=== PATIENT | female | born 1975 | race African-American/Black ===

== ENCOUNTER 2016-09-24 02:57 | Inpatient (IN) | payer OTHER ==
[2016-09-24] VITALS (8 sets, daily range): BP systolic 98–134; BP diastolic 49–90
[~2016-09-24] VITALS: Ht 157.5 cm; Wt 111.1 kg
--- NOTE | ~2016-09-24 | HC ---
[facility] [place] [address] CONSULTATION Name: MAYURIDANYELLE Room #: 459-P [facility] IN .R.#: [id number] Admission: 09/24/16 Attend Phys: Jason Morgan MD Discharge: 09/26/16 Date of : 77 Report #: [id number] THIS REPORT FOR: //name// CC: [facility] physician/PCP Ignacio Mccarthy MD [facility] DATE OF SERVICE: 09/25/2016 REFERRING PROVIDER: Dr. Ignacio Jones. REASON FOR CONSULTATION: Pulmonary infiltrates and hemoptysis. HISTORY OF PRESENT ILLNESS: Our group was asked to see the patient in consultation while hospitalized at [facility], a pleasant 40-year-old woman with a pulmonary history significant for tobacco use, primary pulmonary hypertension managed at [facility] by Dr. Violeta Mccarthy, and obstructive sleep apnea for which she is on nocturnal CPAP, also has a history of spinal stenosis with chronic back pain, had recently undergone what sounds like general anesthesia and placement of spinal stimulator. The patient states she was the last case of the day was discharged in the late afternoon, went home and slept; however, woke about 9 in the evening, said she may have had some hematemesis and hemoptysis, became extremely short of breath, was brought to the Emergency Department here, was noted to have diffuse pulmonary infiltrates. CT scan of the chest to evaluate for pulmonary embolism showed no pulmonary embolism, but significant central appearing pulmonary infiltrates. She was started on piperacillin/tazobactam for possible aspiration pneumonia as well as diuretic therapy. The patient is markedly improved from high-flow nasal cannula, down to 1 liter nasal cannula at the time of my evaluation this afternoon. She has been having some dark colored blood that she continues to expectorate. Denies any illness prior to this event. No fevers, chills or sweats. No prior history of pulmonary embolism. No history of anticoagulation. Does have a history of pulmonary hypertension requiring treatment. Currently, she is resting comfortably in bed, in no distress, somewhat concerned about the ongoing ____ massive amount of hemoptysis that is happening. No chest pains, no palpitations, no further emesis. No prior history of any hemoptysis. ALLERGIES: Include METRONIDAZOLE. PAST MEDICAL HISTORY: 1. History of primary pulmonary hypertension on , lisinopril Lasix and amlodipine. 2. Hypertension. 3. History of spinal stenosis. [address] [address] CONSULTATION Name: DANYELLE MESSINA Room #: 459-P [facility]#: [id number] Admission: 09/24/16 Attend Phys: Jason Morgan MD Discharge: 09/26/16 Date of : 77 Report #: [id number] 4. History of breast reduction surgery. 5. Obesity. 6. Obstructive sleep apnea, on nocturnal CPAP. 7. Hypertension. OUTPATIENT MEDICATIONS: Include amlodipine, Celexa, Lasix, Neurontin, tadalafil, trazodone, Proctofoam, hydrocodone p.r.n., lisinopril, bupropion, meloxicam and loratadine. SOCIAL HISTORY: The patient is an active smoker about 1 pack per day and lives with her son, currently works as a hair colorist. FAMILY HISTORY: Significant for coronary artery disease, diabetes, hypertension and cerebrovascular disease. REVIEW OF SYSTEMS: CONSTITUTIONAL: Noted no fever, chills or sweats, no change in weight or appetite. ENT: No upper respiratory congestion, does note some sore throat post-procedure on Friday. CARDIOVASCULAR: Known history of pulmonary hypertension. No chest pains, palpitations or lower extremity edema. GASTROINTESTINAL: Emesis noted, possible hematemesis, no longer occurring since Friday evening two nights ago. No abdominal pain, diarrhea or constipation. No hematochezia. GENITOURINARY: No dysuria, no frequency or hematuria. INTEGUMENT: Denies any new rash. MUSCULOSKELETAL: Chronic back pain and peripheral neuropathy associated with ailments as described in the past medical. PHYSICAL EXAMINATION: VITAL SIGNS: Afebrile, pulse 100 and regular, respiratory rate 22, blood pressure 123/78, oxygen saturation 94% on 1 liter nasal cannula. GENERAL: This is an obese young woman, does not appear in any distress. HEENT: Mallampati 3 airway, no thrush. No erythema. NECK: Supple, no lymphadenopathy or stridor. LUNGS: Diminished with inspiratory crackles noted predominantly in lower lung combs. No wheezes. CARDIOVASCULAR: Heart was tachycardic, but regular. Cannot appreciate any murmurs or loud P2. ABDOMEN: Soft, obese, nontender, binder was in place. EXTREMITIES: Revealed no significant edema. They are warm with 2+ peripheral pulses. LABORATORY DATA: White blood cell count 10,000, hemoglobin 13, hematocrit 39, platelet count 184. Chemistry profile within normal limits. ProBNP with [address] [address] CONSULTATION Name: DANYELLE MESSINA Room #: 459-P DIS IN M.[place].#: [id number] Admission: 09/24/16 Attend Phys: Jason Morgan MD Discharge: 09/26/16 Date of : 77 Report #: [id number] scan of the chest done for PE protocol revealed diffuse alveolar central appearing infiltrates as described above. No pulmonary embolism noted. Cultures are pending. IMPRESSION: 1. Diffuse pulmonary infiltrates. Differential diagnosis should include aspiration pneumonia, non-cardiogenic pulmonary edema associated with recent anesthesia, possible alveolar hemorrhage of unclear etiology, although it appears to be central ____ involving the periphery, I think an alveolar hemorrhage seemed to be less likely, although it could have aspirated blood while still somewhat somnolent post-procedure and she had some upper airway bleeding associated with ventilation from anesthesia. 2. History of primary pulmonary hypertension. The patient was asked to continue current medicines while I await echocardiogram findings. 3. Acute hypoxemic respiratory failure, better. SUGGESTIONS: 1. Await echo, continue pulmonary hypertension medications, continue Zosyn, await cultures. Consider connective tissue disease screen. 2. Obtain records and discuss further with her [facility] patient relations specialist. 3. Additional recommendations to follow. Thank you for requesting our suggestions. <ELECTRONICALLY SIGNED> By: Dwight Escobedo MD 10/07/16 1549 1523 08 Dwight Escobedo MD /nt
--- NOTE | ~2016-09-24 | 2DMMODE ---
[facility] [address] [employer] [employer] [id number] 2 D/M-MODE ECHOCARDIOGRAM Name: DANYELLE MSESINA Room #: 459-P ADM IN .R.#: [id number] Admission: 09/24/16 Attend Phys: Jason Morgan MD Discharge: Date of : 77 Date of Service: 09/25/16 1423 Report #: [id number] THIS REPORT FOR: //name// APPROVED REPORT Study performed: 09/25/2016 11:54:17 EXAM: Comprehensive 2D, Doppler, and color-flow Echocardiogram Patient Location: Echo lab Room #: 45 Status: routine Other Information Study Quality: Adequate Indications Dyspnea Hx HTN, Primary PHTN 2D Dimensions RVDd: 47.66 mm LVEF(%): 60.54 (>50%) IVSd: 8.79 (7-11mm) LVOT Diam: 17.55 (18-24mm) LVDd: 46.76 mm PWd: 9.06 (7-11mm) Ascending Ao: 24.12 (22-36mm) LVDs: 31.66 (25-40mm) Aortic Root: 23.58 mm Sierra's LVEF: 60.54 % Volumes Left Atrial Volume (Systole) Single Plane 4CH: 65.23 mL Single Plane 2CH: 47.30 mL LA ESV Index: 31.00 mL/m2 Aortic Valve AoV Peak Russell.: 1.40 m/s AO Peak Gr.: 7.84 mmHg LVOT Max P.16 mmHg LVOT Max V: 0.89 m/s GIANCARLO Vmax: 1.54 cm2 Mitral Valve E/A Ratio: 1.1 MV Decel. Time: 207.54 ms MV E Max Russell.: 0.88 m/s MV A Russell.: 0.80 m/s MV PHT: 60.19 ms [facility] [employer] [id number] 2 D/M-MODE ECHOCARDIOGRAM Name: DANYELLE MESSINA Room #: 459-P [facility] IN ..#: [id number] Admission: 09/24/16 Attend Phys: Jason Morgan MD Discharge: Date of : 77 Date of Service: 09/25/16 1423 Report #: [id number] IVRT: 101.50 ms Pulmonary Valve PV Peak Russell.: 1.13 m/s PV Peak Gr.: 5.09 mmHg Tricuspid Valve TR Peak Russell.: 4.66 m/s RAP Estimate: 5.00 mmHg TR Peak Gr.: 86.69 mmHg PA Pressure: 92.00 mmHg Left Ventricle The left ventricle is normal size. Flattened septum consistent with right ventricular volume and pressure overload. There is normal left ventricular wall thickness. The left ventricular systolic function is normal. The left ventricular ejection fraction is within the normal range. LVEF is 55%. The left ventricular diastolic function is normal. Right Ventricle Right ventricle is dilated. Right ventricular systolic function is reduced. Atria The left atrium size is normal. Right atrium is dilated. Aortic Valve The aortic valve is normal in structure. Trace aortic regurgitation. There is no aortic valvular stenosis. Mitral Valve The mitral valve is normal in structure. Trace mitral regurgitation. No evidence of mitral valve stenosis. Tricuspid Valve The tricuspid valve is normal in structure. There is moderate tricuspid regurgitation. The right atrial pressure is estimated at 5 mmHg. There is severe pulmonary hypertension with an estimated PAP of 92 mmHg. Pulmonic Valve The pulmonary valve is normal in structure. Trace pulmonic regurgitation. Great Vessels The aortic root is normal in size. The ascending aorta is normal in size. IVC is normal in size and collapses >50% with [facility] [address] [address] 2 D/M-MODE ECHOCARDIOGRAM Name: DANYELLE MESSINA Room #: 459-P [facility] IN [facility]#: [id number] Admission: 09/24/16 Attend Phys: Jason Morgan MD Discharge: Date of : 77 Date of Service: 09/25/16 1423 Report #: [id number] inspiration. Pericardium There is no pericardial effusion. <Conclusion> The left ventricular systolic function is normal. Flattened septum consistent with right ventricular volume and pressure overload. LVEF is 60%. The aortic valve is normal in structure. No stenosis or insufficinecy The mitral valve is normal in structure. No stenosis or insufficiency There is moderate tricuspid regurgitation. The right atrial pressure is estimated at 5 mmHg. There is severe pulmonary hypertension with an estimated PAP of 92 mmHg. There is no pericardial effusion. <ELECTRONICALLY SIGNED> By: Claudio Iqbal MD, [facility] 09/25/16 1423 1423 1423 Claudio Iqbal MD, FACC /INF
--- NOTE | ~2016-09-24 | EKG ---
[address] [address] ELECTROCARDIOGRAM REPORT Name: ADNYELLE MESSINA Room #: 459- ADM IN ..#: [id number] Admission: 09/24/16 Attend Phys: Jason Morgan MD Discharge: Date of : 77 Report #: [id number] THIS REPORT FOR: //name// [facility] ED Test Date: 2016-09-24 Test Time: 03:03:55 Pat Name: DANYELLE MESSINA Department: Room: [facility] Gender: F Delivery Professional: MZOOK : 1975 Requested By: Yecenia Cuevas Order Number: [id number] MD: Josep Dasilva Measurements Intervals [place] Rate: 105 P: 43 ND: 172 QRS: 95 QRSD: 101 T: -17 QT: 385 QTc: 509 Interpretive Statements Sinus tachycardia LAE, consider biatrial enlargement Electronically Signed On 09-24-2016 12:57:03 CDT by Josep Dasilva [email or web address] <ELECTRONICALLY SIGNED> By: Josep Dasilva MD 09/24/16 1257 2 2 Josep Dasilva MD /INNA
[~2016-09-24 02:57] MED LIST: ADCIRCA20 MG; CITALOPRAM10 MG/5 M1; CLARITIN10 MG PO; FLEXERIL PO; HYDROCODON-ACE1 EAC7; LASIX 20 MG TAB20 MG; LISINOPRIL10 MG PO; MOBIC15 MG PO; NEURONTIN 300300 M1; NORVASC 5 MG TAB5 MG; PERCOCET 5-3251 EACH PO; PROCTOFOAM15 GM TP; TRAZODONE HCL100 MG PO; WELLBUTRIN SR150 MG PO
[2016-09-24 03:36] LABS: BASOPHILS 0.8 % (0.0-2.0); EOSINOPHILS 0.1 % (0.0-3.0); HEMATOCRIT 43.3 % (37.0-47.0); HEMOGLOBIN 14.5 gm/dL (12.0-15.0); MCH 32.8 pg (26.0-34.0); MCHC 33.5 g/dL (28.0-37.0); MCV 97.9 fL (80.0-100.0); MONOCYTES 3.5 % (1.0-8.0); PLATELET COUNT 208 thou/uL (150-400); POLYS 83.6 % (36.0-66.0); RBC 4.42 mil/uL (4.20-5.00); RDW 14.3 % (10.5-14.5)
[2016-09-24 03:40] LABS: MANUAL DIFF NO
[2016-09-24 03:45] LABS: CALCIUM 8.3 mg/dL (8.5-10.1); CREATININE 0.9 mg/dL (0.6-1.0); POTASSIUM 4.1 mmol/L (3.5-5.1)
[2016-09-24 03:51] LABS: ABG SAMPLE TYPE ARTERIAL; BE(vivo) -1.9 mmol/L (-2 to +3); HCO3 23.3 mmol/L (22.0-26.0); LACTATE 2.51 mmol/L (0.5-2.0); O2(CT) 20.1 mL/dL (15.0-23.0); O2Hb 97.4 % (92.0-98.0); PCO2 41.5 mmHg (35.0-45.0); PO2 196.2 mmHg (80.0-100.0); pH 7.368 (7.360-7.450); sO2 99.3 % (92.0-98.0); tCO2 24.6 mmol/L (24.0-30.0)
[2016-09-24 03:52] LABS: STICK SITE R.RADIAL
[2016-09-24 05:48] LABS: APTT 25.3 Seconds (24.5-32.8); PROTIME 10.5 Seconds (9.3-11.4)
[2016-09-24] MEDS ORDERED: AMLODIPINE BESY10 MG PO (08:57)
[2016-09-24] MEDS ORDERED: CELEXA10 MG (08:59)
[2016-09-24] MEDS ORDERED: FUROSEMIDE 40 M40 MG PO (09:01)
[2016-09-24] MEDS ORDERED: NEURONTIN 300300 M1 PO (09:02)
[2016-09-24] MEDS ORDERED: ADCIRCA20 MG PO (14:51)
[2016-09-24] MEDS ORDERED: TRAZODONE HCL100 MG PO (14:54)
[2016-09-24] MEDS ORDERED: PROCTOFOAM15 GM TP (14:55)
[2016-09-25 03:34] VITALS: BP 123/71
[2016-09-25 04:12] LABS: GLYCOHEMOGLOBIN (HGB A1C) 5.3 % (4.8-5.6)
[2016-09-25 07:09] LABS: ABSOLUTE NEUTROPHILS 7.1 thou/uL (1.4-8.2); BASOPHILS 0.5 % (0.0-2.0); EOSINOPHILS 2.3 % (0.0-3.0); HEMATOCRIT 39.1 % (37.0-47.0); HEMOGLOBIN 13.3 gm/dL (12.0-15.0); LYMPHOCYTES 19.7 % (24.0-44.0); MCH 33.1 pg (26.0-34.0); MCHC 34.1 g/dL (28.0-37.0); MONOCYTES 6.5 % (1.0-8.0); PLATELET COUNT 184 thou/uL (150-400); RBC 4.03 mil/uL (4.20-5.00); RDW 14.4 % (10.5-14.5)
[2016-09-25 07:17] LABS: MANUAL DIFF NO
[2016-09-25 07:25] LABS: CALCIUM 8.1 mg/dL (8.5-10.1); CREATININE 0.8 mg/dL (0.6-1.0); POTASSIUM 3.5 mmol/L (3.5-5.1)
[2016-09-25 07:39] VITALS: BP 95/62
[2016-09-25 11:35] VITALS: BP 123/78
[2016-09-25 15:42] VITALS: BP 147/89
[2016-09-25 19:26] VITALS: BP 135/101
[2016-09-26 04:00] VITALS: BP 127/80
[2016-09-26 04:08] LABS: GLYCOHEMOGLOBIN (HGB A1C) 5.2 % (4.8-5.6)
[2016-09-26 07:44] VITALS: BP 107/70
[2016-09-26 09:19] LABS: ABSOLUTE NEUTROPHILS 5.2 thou/uL (1.4-8.2); BASOPHILS 1.5 % (0.0-2.0); EOSINOPHILS 3.8 % (0.0-3.0); HEMATOCRIT 43.9 % (37.0-47.0); MCH 33.2 pg (26.0-34.0); MCHC 34.1 g/dL (28.0-37.0); MCV 97.4 fL (80.0-100.0); MONOCYTES 5.7 % (1.0-8.0); PLATELET COUNT 206 thou/uL (150-400); RBC 4.51 mil/uL (4.20-5.00); RDW 14.1 % (10.5-14.5); WBC 8.8 thou/uL (4.0-11.0)
[2016-09-26 09:21] LABS: MANUAL DIFF NO
[2016-09-26 09:30] LABS: CALCIUM 8.9 mg/dL (8.5-10.1); CREATININE 1.3 mg/dL (0.6-1.0); POTASSIUM 3.3 mmol/L (3.5-5.1)
[2016-09-26 12:20] VITALS: BP 118/67
[2016-09-26] MEDS ORDERED: AUGMENTIN 875875 MG PO (12:46)
[2016-09-26 13:59] VITALS: BP 118/67
== END 2016-09-26 14:33 | disposition home or self-care (01) | DRG 177 ==
LOC: ER 02:57 → EROBS 05:39 → 4W 05:39
PROVIDERS: Emergency Medicine; Nurse Practitioner
DX: J69.0 Pneumonitis due to inhalation of food and vomit (principal); J96.01 Acute respiratory failure with hypoxia; E87.2 Acidosis; R04.2 Hemoptysis; G89.29 Other chronic pain; I10 Essential (primary) hypertension; M54.9 Dorsalgia, unspecified; M48.00 Spinal stenosis, site unspecified; M19.90 Unspecified osteoarthritis, unspecified site; I27.2 Other secondary pulmonary hypertension; G47.33 Obstructive sleep apnea (adult) (pediatric); E87.70 Fluid overload, unspecified; I25.10 Atherosclerotic heart disease of native coronary artery without angina pectoris; F17.210 Nicotine dependence, cigarettes, uncomplicated; E11.9 Type 2 diabetes mellitus without complications; Z86.73 Personal history of transient ischemic attack (TIA), and cerebral infarction without residual deficits; Z82.49 Family history of ischemic heart disease and other diseases of the circulatory system; Z83.3 Family history of diabetes mellitus; Z82.3 Family history of stroke; Z88.8 Allergy status to other drugs, medicaments and biological substances; Z79.899 Other long term (current) drug therapy
CPT/HCPCS: 10045

== ENCOUNTER 2017-09-02 00:13 | Emergency (ER) | payer OTHER ==
[~2017-09-02] VITALS: Ht 157.5 cm; Wt 108.9 kg
[~2017-09-02 00:13] MED LIST changes: +ADCIRCA20 MG PO; +AMLODIPINE BESY10 MG PO; +AUGMENTIN 875875 MG PO; +CELEXA10 MG; +FUROSEMIDE 40 M40 MG PO; +NEURONTIN 300300 M1 PO
[2017-09-02] MEDS ORDERED: NORCO 5-325 TA1 EACH PO (00:52)
== END 2017-09-02 01:09 | disposition home or self-care (01) ==
LOC: ER 00:13
DX: M54.5 Low back pain (principal); G89.29 Other chronic pain; I10 Essential (primary) hypertension; M19.90 Unspecified osteoarthritis, unspecified site; F17.210 Nicotine dependence, cigarettes, uncomplicated; Z88.8 Allergy status to other drugs, medicaments and biological substances; V89.2XXA Person injured in unspecified motor-vehicle accident, traffic, initial encounter; Y93.89 Activity, other specified; Y92.89 Other specified places as the place of occurrence of the external cause; Y99.8 Other external cause status

== ENCOUNTER 2018-02-21 06:50 | Emergency (ER) | payer OTHER ==
[~2018-02-21] VITALS: Ht 157.5 cm; Wt 104.3 kg
[~2018-02-21 06:50] MED LIST changes: +NORCO 5-325 TA1 EACH PO
[2018-02-21] MEDS ORDERED: NORCO 10-325 T1 EACH PO (10:04)
[2018-02-21] MEDS ORDERED: NAPROSYN500 MG PO (10:04)
[2018-02-21 10:23] VITALS: BP 130/77
== END 2018-02-21 10:24 | disposition home or self-care (01) ==
LOC: ER 06:50
DX: S16.1XXA Strain of muscle, fascia and tendon at neck level, initial encounter (principal); S39.012A Strain of muscle, fascia and tendon of lower back, initial encounter; M54.9 Dorsalgia, unspecified; G89.29 Other chronic pain; I10 Essential (primary) hypertension; M19.90 Unspecified osteoarthritis, unspecified site; F17.210 Nicotine dependence, cigarettes, uncomplicated; Z88.8 Allergy status to other drugs, medicaments and biological substances; V89.2XXA Person injured in unspecified motor-vehicle accident, traffic, initial encounter; Y93.89 Activity, other specified; Y92.89 Other specified places as the place of occurrence of the external cause; Y99.8 Other external cause status

== ENCOUNTER 2019-04-27 10:16 | Emergency (ER) | payer OTHER ==
[~2019-04-27] VITALS: Ht 157.5 cm; Wt 114.3 kg
[~2019-04-27 10:16] MED LIST changes: +NAPROSYN500 MG PO; +NORCO 10-325 T1 EACH PO
[2019-04-27] MEDS ORDERED: PREDNISONE 10 M10 MG PO (11:40)
[2019-04-27 11:59] VITALS: BP 117/75
== END 2019-04-27 12:00 | disposition home or self-care (01) ==
LOC: ER 10:16
DX: M54.41 Lumbago with sciatica, right side (principal); M54.9 Dorsalgia, unspecified; G89.29 Other chronic pain; I10 Essential (primary) hypertension; E66.01 Morbid (severe) obesity due to excess calories; M19.90 Unspecified osteoarthritis, unspecified site; M48.00 Spinal stenosis, site unspecified; F17.210 Nicotine dependence, cigarettes, uncomplicated; Z68.42 Body mass index [BMI] 45.0-49.9, adult; Z88.1 Allergy status to other antibiotic agents

== ENCOUNTER 2020-09-12 00:12 | Emergency (ER) | payer OTHER ==
[~2020-09-12] VITALS: Ht 157.5 cm; Wt 111.6 kg
[~2020-09-12 00:12] MED LIST changes: -NEURONTIN 300300 M1 PO; +NEURONTIN800 MG PO; +PREDNISONE 10 M10 MG PO
[2020-09-12] MEDS ORDERED: OXYCODONE HCL E10 MG PO (00:47)
[2020-09-12] MEDS ORDERED: ZANAFLEX4 M2 PO (00:48)
[2020-09-12 03:57] LABS: CALCIUM 8.7 mg/dL (8.5-10.1); CREATININE 1.1 mg/dL (0.6-1.0); POTASSIUM 3.8 mmol/L (3.5-5.1)
[2020-09-12 04:49] VITALS: BP 129/87
== END 2020-09-12 04:53 | disposition home or self-care (01) ==
LOC: ER 00:12
PROVIDERS: Emergency Medicine
DX: M54.5 Low back pain (principal); R60.0 Localized edema; G89.29 Other chronic pain; M54.9 Dorsalgia, unspecified; I10 Essential (primary) hypertension; M19.90 Unspecified osteoarthritis, unspecified site; Z88.1 Allergy status to other antibiotic agents; F17.210 Nicotine dependence, cigarettes, uncomplicated; Z79.899 Other long term (current) drug therapy; W18.39XA Other fall on same level, initial encounter; Y93.89 Activity, other specified; Y92.89 Other specified places as the place of occurrence of the external cause; Y99.8 Other external cause status

== ENCOUNTER 2020-10-11 10:15 | Emergency (ER) | payer OTHER ==
[~2020-10-11] VITALS: Ht 157.5 cm; Wt 112.0 kg
[~2020-10-11 10:15] MED LIST changes: +OXYCODONE HCL E10 MG PO; +ZANAFLEX4 M2 PO
[2020-10-11] MEDS ORDERED: BACLOFEN 10MG T10 MG PO (10:44)
[2020-10-11 12:26] VITALS: BP 83/50
== END 2020-10-11 12:26 | disposition home or self-care (01) ==
LOC: ER 10:15
DX: G89.29 Other chronic pain (principal); M54.5 Low back pain; M79.662 Pain in left lower leg; M79.604 Pain in right leg; I10 Essential (primary) hypertension; M19.90 Unspecified osteoarthritis, unspecified site; F17.210 Nicotine dependence, cigarettes, uncomplicated; Z79.899 Other long term (current) drug therapy; Z88.8 Allergy status to other drugs, medicaments and biological substances